=== PATIENT | male | born 1975 | race Asian ===

== ENCOUNTER 2017-09-10 18:33 | Emergency (ER) | payer OTHER ==
[2017-09-10 18:40] VITALS: TEMP 97.9
--- NOTE | 2017-09-10 19:24 | EDPHY ---
H & P Stated Complaint: running playing basketball felt tear back of r leg/calf Time Seen by Provider: 09/10/17 18:45 HPI/ROS: Chief complaint: Left ankle injury History of present illness: This is a 42-year-old male who presents to the emergency department for a left ankle injury. He was running while playing basketball when he felt an intense pain in the back of his left heel. Since then he has not been able ambulate on it well. There was no direct trauma. No report of open wounds. No abnormal coolness or paresthesias in the foot. No other complaints. - Personal History Current Tetanus/Diphtheria Vaccine: Yes - Medical/Surgical History Hx Asthma: No Hx Chronic Respiratory Disease: No Hx Diabetes: No Hx Cardiac Disease: No Hx Renal Disease: No Hx Cirrhosis: No Hx Alcoholism: No Hx HIV/AIDS: No Hx Splenectomy or Spleen Trauma: No Other PMH: denies - Social History Smoking Status: Never smoked - Physical Exam Exam: General: Alert, nontoxic Skin: No open wounds or lesions consistent with trauma Musculoskeletal: Obvious deformity to the left Achilles region. He cannot plantar flex the foot. The rest of the ankle as well as the foot and lower leg are nontender. Vascular: DP and PT pulses 2+. Capillary refill brisk in the left foot. Neurologic: Sensation intact throughout the left foot and leg. Constitutional: Initial Vital Signs Temperature (C) 36.6 C 09/10/17 18:37 Heart Rate 77 09/10/17 18:37 Respiratory Rate 17 09/10/17 18:37 Blood Pressure 103/68 09/10/17 18:37 O2 Sat (%) 94 09/10/17 18:37 O2 Delivery Mode Room Air Allergies/Adverse Reactions: No Known Allergies Allergy (Unverified 09/10/17 18:37) Home Medications: Medication Instructions Recorded NK [No Known Home Meds] 09/10/17 Medical Decision Making - Diagnostics Imaging Results: Imaging Impressions Ankle X-Ray 09/10/17 18:55 Impression: 1. Soft tissue thickening of the Achilles tendon just above the calcaneus. This could represent injury in the musculotendinous junction. If indicated, consider further characterization with high-resolution musculoskeletal ultrasound at some point versus MRI exam. Imaging: I viewed and interpreted images myself Procedures: Procedure: Splint placement. A posterior short-leg splint with plantar flexion was applied. After application of the splint I returned and re-examined the patient. The splint was adequately immobilizing the joint and distal to the splint the patient's circulation and sensation was intact. Patient was given crutches ED Course/Re-evaluation: Patient seen under the supervision of my primary supervising physician Dr. Indy Edwards. Patient presents for a left heel injury. He appears to have ruptured his Achilles tendon. The foot is neurovascularly intact. He is splinted. He is placed on crutches. He is referred to Orthopedics for recheck. Return precautions are given. Differential Diagnosis: Included but not limited to contusion, sprain or strain, Achilles tendon rupture , fracture, dislocation Departure - Departure Disposition: Home, Routine, Self-Care Clinical Impression: Achilles rupture, left Qualifiers: Encounter type: initial encounter Qualified Code(s): S86.012A - Strain of left Achilles tendon, initial encounter Condition: Good Instructions: Achilles Tendon Rupture (ED) Additional Instructions: Follow-up with orthopedics for continued evaluation care next week If symptoms worsen or new symptoms develop return to the emergency room for recheck Please call [facility] at [phone] tomorrow Referrals: NONE *PRIMARY CARE P,. [Primary Care Provider] - As per Instructions Benjamin Adams MD [Medical Doctor] - As per Instructions
[2017-09-10 19:52] VITALS: BP 108/78; PULSE 78; RESP 20; O2SAT 98
== END 2017-09-10 19:53 | disposition home or self-care (01) ==
DX: S86.012A Strain of left Achilles tendon, initial encounter (principal); X58.XXXA Exposure to other specified factors, initial encounter; Y99.8 Other external cause status; Y93.67 Activity, basketball